=== PATIENT | female | born 1980 | race Two or more races ===

== ENCOUNTER 2019-01-09 06:49 | Emergency (ER) | payer BC, MEDICAID ==
[~2019-01-09] VITALS: Ht 165.1 cm; Wt 78.0 kg
[2019-01-09 08:02] LABS: Basophils # (auto) 0 uL; Basophils % (auto) 0.2 % (0.0-2.0); Eosinophils # (auto) 0.1 uL; Eosinophils % (auto) 0.9 % (0.0-7.0); Hematocrit 41.6 % (36.0-46.0); Hemoglobin 13.8 g/dL (12.2-16.2); Lymphocytes # (auto) 2.1 uL; Lymphocytes % (auto) 20.3 % (10.0-50.0); Mean Corpuscular Hemoglobin 27.5 pg (28.0-32.0); Mean Corpuscular Hgb Conc. 33.1 g/dL (32.0-36.0); Mean Corpuscular Volume 83.3 fL (80.0-100.0); Monocytes # (auto) 0.4 uL; Monocytes % (auto) 4.1 % (0.0-12.0); Neutrophils # (auto) 7.6 uL; Neutrophils % (auto) 74.5 % (37.0-80.0); Platelet Count (auto) 229 10^3/uL (140-450); Red Cell Distribution Width 13.6 % (11.8-14.3); White Blood Cell 10.2 10^3/uL (4.4-10.8)
[2019-01-09 08:16] LABS: Albumin 4.2 g/dL (3.4-5.0); Calcium 9.6 mg/dL (8.5-10.1); Potassium 4.6 mmol/L (3.5-5.1)
[2019-01-09 08:20] LABS: BUN/Creatinine Ratio 18.7; Bilirubin, Total 0.4 mg/dL (0.2-1.0); Total Protein 8.4 g/dL (6.4-8.2)
[2019-01-09 08:31] LABS: Urine Blood Negative /uL (Negative); Urine Mucus FEW (None Seen); Urine Specific Gravity 1.035 (1.001-1.035); Urine WBC 6 /hpf (0 - 5)
[2019-01-09 08:32] LABS: Urine Bacteria FEW /hpf (None Seen)
[2019-01-09] MEDS ORDERED: ALUM & MAG HYDROX-SIMETH LIQ(MAALOX) 30 ML PO ONE ×2 (09:00→09:30)
[2019-01-09] MEDS ORDERED: SODIUM CHLORIDE 0.9% 1,000 ML IV ONE (09:00)
[2019-01-09] MEDS ORDERED: cefTRIAXone 1GM/50ML D5W 50 ML IV ONE (09:15)
[2019-01-09] MEDS ORDERED: DONNATAL 5ml ORAL Elix (BELLADONNA ALK-PHENOBARB) PO ONE (09:30)
[2019-01-09] MEDS ORDERED: LIDOCAINE VISCOUS 2% 15ML UD PO ONE (09:30)
[2019-01-09] MEDS ORDERED: ONDANSETRON HCL 4 MG/2 ML VIAL IV ONE (11:00)
[2019-01-09] MEDS ORDERED: MORPHINE SULF INJ 2 MG/ML SYRINGE 1ML IV ONE (11:00)
[2019-01-09 11:29] VITALS: BP 131/72
== END 2019-01-09 11:31 | disposition home or self-care (01) ==
LOC: ER 06:56
DX: N39.0 Urinary tract infection, site not specified (principal); E86.0 Dehydration; N83.202 Unspecified ovarian cyst, left side; Z90.710 Acquired absence of both cervix and uterus; Z98.51 Tubal ligation status
CPT/HCPCS: 36415; 74176; 80053; 81001; 83690; 85025; 96365; 96366; 96375; 99284; J0696; J2270; J2405; J7030

== ENCOUNTER 2023-11-15 19:09 | Emergency (ER) | payer MEDICAID ==
[~2023-11-15] VITALS: Ht 165.1 cm; Wt 85.3 kg
[2023-11-15] MEDS: SODIUM CHLORIDE 0.9% 1,000 ML IV ONE (20:08)
[2023-11-15 20:14] LABS: Basophils # (auto) 0 10 ^3/uL (0-0.2); Basophils % (auto) 0.4 % (0.0-2.0); Eosinophils # (auto) 0.1 10 ^3/uL (0-0.8); Eosinophils % (auto) 2.5 % (0.0-7.0); Hematocrit 41.1 % (36.0-46.0); Hemoglobin 13.6 g/dL (12.2-16.2); Lymphocytes # (auto) 2.7 10 ^3/uL (0.4-5.4); Lymphocytes % (auto) 46.1 % (10.0-50.0); Mean Corpuscular Hemoglobin 27.4 pg (28.0-32.0); Mean Corpuscular Hgb Conc. 33.2 g/dL (32.0-36.0); Mean Corpuscular Volume 82.5 fL (80.0-100.0); Monocytes # (auto) 0.4 10 ^3/uL (0-1.3); Neutrophils # (auto) 2.6 10 ^3/uL (1.6-8.6); Nucleated Red Blood Cells % 0.1 %; Red Blood Cells 4.98 10^6/uL (4.0-5.20); Red Cell Distribution Width 13.9 % (11.8-14.3); White Blood Cell 5.8 10^3/uL (4.4-10.8)
[2023-11-15 20:27] VITALS: RESP 16; O2SAT 97
[2023-11-15 20:36] LABS: Alanine Aminotransferase 49 U/L (7-40); Albumin 4.7 g/dL (3.2-4.8); Alkaline Phosphatase 99 U/L (46-116); Anion Gap 9 (5-15); Aspartate Aminotransferase 16 U/L (13-40); BUN/Creatinine Ratio 16.9 (10.0-20.0); Blood Urea Nitrogen 11 mg/dL (9-23); Carbon Dioxide 28 mmol/L (20-30); Chloride 105 mmol/L (98-107); Glucose 120 mg/dL (74-106); Potassium 4.1 mmol/L (3.5-5.1); Sodium 142 mmol/L (136-145)
[2023-11-15 20:37] LABS: Bilirubin, Total 0.3 mg/dL (0.2-1.0); Total Protein 7.8 g/dL (5.7-8.2)
[2023-11-15 21:01] LABS: Urine Bacteria None Seen /hpf (None Seen)
[2023-11-15 21:06] LABS: COVID19 ANTIGEN SOFIA FIA POSITIVE (NEGATIVE)
[2023-11-15 21:13] LABS: Urine Blood TRACE /uL (Negative); Urine Clarity Clear (Clear); Urine Color Yellow (Yellow); Urine Mucus FEW (None Seen); Urine Protein, UAD TRACE (Negative); Urine Specific Gravity 1.036 (1.001-1.035); Urine Urobilinogen Normal (Negative); Urine WBC 2 /hpf (0 - 5); Urine pH 5.5 (5.0-9.0)
[2023-11-15 21:19] LABS: Amphetamine Screen, Urine Neg (NEGATIVE); Barbiturate Scree,Urine Neg (NEGATIVE); Benzodiazephine Screen, Urine Neg (NEGATIVE); Cocaine Screen, Urine Neg (NEGATIVE); Opiate Scree,Urine Neg (NEGATIVE); Phencyclidine Screen, Urine Neg (NEGATIVE)
[2023-11-15 21:20] LABS: Cannabinoid Screen, Urine Neg (NEGATIVE)
[2023-11-15] MEDS ORDERED: AZIT-185 PO (21:45)
[2023-11-15] MEDS: DexAMETHasone SOD PHOS 10MG/1ML VIAL INJ IM ONE (22:10)
[2023-11-15] MEDS: AZITHROMYCIN 500MG/ 250ML 250 ML IV ONE (22:11)
[2023-11-15 23:47] VITALS: BP 125/71; TEMP 97.7; O2SAT 100
[2023-11-15 23:57] VITALS: PULSE 61; RESP 16
== END 2023-11-15 23:52 | disposition home or self-care (01) ==
LOC: ER 19:09
DX: U07.1 COVID-19 (principal); R10.2 Pelvic and perineal pain; J12.82 Pneumonia due to coronavirus disease 2019; R42 Dizziness and giddiness; E11.9 Type 2 diabetes mellitus without complications; Z98.891 History of uterine scar from previous surgery; Z98.890 Other specified postprocedural states; Z90.710 Acquired absence of both cervix and uterus
CPT/HCPCS: 36415; 70450; 71045; 80053; 80307; 81001; 83735; 83880; 84484; 84702; 85025; 87426; 93005; 96361; 96365; 96366; 96372; 99285; J0456; J1100; J7030

== ENCOUNTER 2023-11-23 08:48 | Emergency (ER) | payer MEDICAID ==
[~2023-11-23] VITALS: Ht 165.1 cm; Wt 84.2 kg
[~2023-11-23 08:48] MED LIST: AZIT-185 PO
[2023-11-23] MEDS: LIDOCAINE VISCOUS 2% 15ML UD MT ONE (10:51)
[2023-11-23] MEDS: MAALOX PLUS or MAALOX 30 ML PO ONE (10:52)
[2023-11-23 10:53] LABS: Basophils # (auto) 0 10 ^3/uL (0-0.2); Basophils % (auto) 0.4 % (0.0-2.0); Eosinophils # (auto) 0.1 10 ^3/uL (0-0.8); Eosinophils % (auto) 1.6 % (0.0-7.0); Hematocrit 41.7 % (36.0-46.0); Hemoglobin 13.9 g/dL (12.2-16.2); Lymphocytes # (auto) 2.3 10 ^3/uL (0.4-5.4); Lymphocytes % (auto) 26.9 % (10.0-50.0); Mean Corpuscular Hemoglobin 27.4 pg (28.0-32.0); Mean Corpuscular Hgb Conc. 33.4 g/dL (32.0-36.0); Monocytes # (auto) 0.4 10 ^3/uL (0-1.3); Monocytes % (auto) 5.3 % (0.0-12.0); Neutrophils # (auto) 5.6 10 ^3/uL (1.6-8.6); Neutrophils % (auto) 65.8 % (37.0-80.0); Red Blood Cells 5.09 10^6/uL (4.0-5.20); Red Cell Distribution Width 13.8 % (11.8-14.3); White Blood Cell 8.4 10^3/uL (4.4-10.8)
[2023-11-23 11:07] LABS: INR 1.04 (0.9-1.15); Partial Thromboplastin Time 29.1 SEC (24.5-34.5)
[2023-11-23] MEDS: TERBUTALINE SULFATE 1 MG/ML 1ML VIAL SC ONE (11:14)
[2023-11-23 11:53] LABS: Alanine Aminotransferase 34 U/L (7-40); Alkaline Phosphatase 103 U/L (46-116); Anion Gap 5 (5-15); Aspartate Aminotransferase 22 U/L (13-40); BUN/Creatinine Ratio 22.9 (10.0-20.0); Bilirubin, Total 0.4 mg/dL (0.2-1.0); Blood Urea Nitrogen 16 mg/dL (9-23); Calcium 10.9 mg/dL (8.7-10.4); Carbon Dioxide 30 mmol/L (20-30); Chloride 104 mmol/L (98-107); Glucose 138 mg/dL (74-106); Potassium 4.7 mmol/L (3.5-5.1); Sodium 139 mmol/L (136-145); Total Protein 8.1 g/dL (5.7-8.2)
[2023-11-23] MEDS ORDERED: ALBUAER3 IN (12:34)
[2023-11-23] MEDS ORDERED: MAA30LQ GT (12:34)
[2023-11-23] MEDS ORDERED: FAMO20TA10 PO (12:34)
[2023-11-23 12:38] VITALS: BP 91/69; PULSE 69; RESP 16; TEMP 97.6; O2SAT 100
== END 2023-11-23 12:40 | disposition home or self-care (01) ==
LOC: ER 08:48
DX: U07.1 COVID-19 (principal); R10.9 Unspecified abdominal pain; K29.70 Gastritis, unspecified, without bleeding; E11.9 Type 2 diabetes mellitus without complications; Z90.89 Acquired absence of other organs; Z90.710 Acquired absence of both cervix and uterus; Z98.890 Other specified postprocedural states
CPT/HCPCS: 36415; 71046; 80053; 83880; 85025; 85610; 85730; 96372; 99284; J3105